=== PATIENT | female | born 1970 | race Caucasian/White ===

== ENCOUNTER → 2016-09-16 11:26 | Outpatient (CLI) | payer BC ==
[2016-09-16 12:33] LABS: C-REACTIVE PROTEIN 0.5 mg/dL (0.0-0.9); T4 THYROXIN - FREE 0.9 ng/dL (0.76-1.46); T4 THYROXINE 7.4 ug/dL (4.7-13.3); THYROID STIMULATING HORMONE 1.86 uIU/mL (0.36-3.74)
[2016-09-17 05:15] LABS: T3 - FREE 3.3 pg/mL (2.0-4.4); THYROID PEROXIDASE ABS 27 IU/mL (0-34)
[2016-09-17 06:12] LABS: ESTRADIOL 25.3 pg/mL (()); PROGESTERONE 0.2 ng/mL (())
[2016-09-17 08:17] LABS: IMMUNOGLOBULIN A 173 mg/dL (87-352); IMMUNOGLOBULIN G 679 mg/dL (700-1600)
[2016-09-18 15:08] LABS: TESTOSTERONE - FREE 0.7 pg/mL (0.0-4.2); TESTOSTERONE - SERUM 5 ng/dL (8-48)
== END | disposition home or self-care (01) ==
LOC: D.LAB 11:26
DX: E03.9 Hypothyroidism, unspecified (principal); F32.9 Major depressive disorder, single episode, unspecified; E66.3 Overweight

== ENCOUNTER → 2016-11-28 12:26 | Outpatient (CLI) | payer BC ==
[2016-11-28 13:48] LABS: % SATURATION 10 % (15-55); IRON 43 ug/dl (35-150); TOTAL IRON BIND CAPACITY 394 ug/dl (260-445); UNSAT IRON BIND CAPACITY 351 ug/dl (150-375)
[2016-11-28 14:05] LABS: T4 THYROXIN - FREE 0.92 ng/dL (0.76-1.46); T4 THYROXINE 3.9 ug/dL (4.7-13.3); THYROID STIMULATING HORMONE 1.31 uIU/mL (0.36-3.74)
[2016-11-29 07:22] LABS: T3 - FREE 3.6 pg/mL (2.0-4.4)
== END | disposition home or self-care (01) ==
LOC: D.LAB 12:26
DX: E55.9 Vitamin D deficiency, unspecified (principal); E03.9 Hypothyroidism, unspecified; R53.83 Other fatigue; E66.3 Overweight

== ENCOUNTER → 2017-07-07 07:53 | Outpatient (CLI) | payer BC ==
[2017-07-07 09:21] LABS: T4 THYROXIN - FREE 0.89 ng/dL (0.76-1.46); THYROID STIMULATING HORMONE 2.6 uIU/mL (0.36-3.74)
[2017-07-08 06:21] LABS: T3 - FREE 2.8 pg/mL (2.0-4.4)
[2017-07-09 15:09] LABS: VITAMIN D 25 HYDROXY 24.1 ng/mL (30.0-100.0)
== END | disposition home or self-care (01) ==
LOC: D.LAB 07:53
PROVIDERS: Nurse Practitioner Family
DX: Z73.3 Stress, not elsewhere classified (principal); K59.00 Constipation, unspecified; R77.8 Other specified abnormalities of plasma proteins